=== PATIENT | female | born 1950 | race Caucasian/White ===

== ENCOUNTER → 2016-08-25 | Outpatient (CLI) | payer MEDICARE, OTHER | LOC: RAD 13:24 | DX: M25.512 Pain in left shoulder (principal) | CPT/HCPCS: 73030 ==

== ENCOUNTER → 2016-12-04 | Outpatient (CLI) | payer MEDICARE, OTHER | LOC: RAD 10:29 | DX: M54.5 Low back pain (principal) | CPT/HCPCS: 72100 ==

== ENCOUNTER 2021-05-22 14:20 | Inpatient (IN) | payer MEDICARE, OTHER ==
[~2021-05-22] VITALS: Ht 160 cm; Wt 66.2 kg
[2021-05-22 14:59] LABS: HEMOGLOBIN 11.8 gm/dl (12.3-15.3); RED BLOOD COUNT 3.79 M/UL (4.00-5.10); WHITE BLOOD COUNT 6.6 K/UL (4.5-11.0)
[2021-05-22 16:54] LABS: BUN/CREATININE RATIO 22 (0-10)
[2021-05-22] MEDS ORDERED: ROBAXIN 750 MG750 MG PO (18:14)
[2021-05-22] MEDS ORDERED: CETIRIZINE HCL10 MG PO (18:15)
[2021-05-22] MEDS ORDERED: TRICOR 145 MG145 MG PO (18:15)
[2021-05-22] MEDS ORDERED: AMITRIPTYLINE H10 MG PO (18:15)
[2021-05-22] MEDS ORDERED: GABAPENTIN400 MG PO (18:16)
[2021-05-22] MEDS ORDERED: HYDROCODON-ACE1 EAC6 PO (18:16)
[2021-05-22] MEDS ORDERED: NITROGLYCERIN0.4 MG SL (18:16)
[2021-05-22] MEDS ORDERED: PROTONIX 40 MG40 M1 PO (18:16)
[2021-05-22] MEDS ORDERED: TOPIRAMATE50 MG PO (18:17)
[2021-05-22] MEDS ORDERED: METOPROLOL TART25 MG PO (18:19)
[2021-05-22] MEDS ORDERED: CALCIUM 600 +1 EAC2 PO (18:19)
[2021-05-22] MEDS ORDERED: DULOXETINE HCL30 MG PO (18:19)
[2021-05-22] MEDS ORDERED: MELOXICAM15 MG PO (18:20)
[2021-05-22] MEDS ORDERED: RANEXA500 MG PO (18:20)
[2021-05-22] MEDS ORDERED: PROAIR HFA8.5 GM INH (18:20)
[2021-05-22] MEDS ORDERED: AMLODIPINE BES2.5 MG PO (18:21)
[2021-05-22] MEDS ORDERED: PRAVASTATIN SOD40 MG PO (18:21)
[2021-05-22] MEDS ORDERED: ISOSORBIDE MONO60 MG PO (18:21)
[2021-05-23 11:10] LABS: HEMOGLOBIN 9.9 gm/dl (12.3-15.3); WHITE BLOOD COUNT 6.1 K/UL (4.5-11.0)
[2021-05-23 11:12] LABS: RED BLOOD COUNT 3.19 M/UL (4.00-5.10)
[2021-05-24 03:48] LABS: HEMOGLOBIN 10.2 gm/dl (12.3-15.3); RED BLOOD COUNT 3.35 M/UL (4.00-5.10); WHITE BLOOD COUNT 5.3 K/UL (4.5-11.0)
[2021-05-24] MEDS ORDERED: CLOPIDOGREL75 MG PO (08:30)
== END 2021-05-24 14:30 | disposition home or self-care (01) | DRG 287 ==
LOC: ER1 14:20 → CDU 17:23 → PROG CARE 17:23
PROVIDERS: Physician Assistant; ADMIT Internal Medicine
PROC: 4A023N7 Measurement of Cardiac Sampling and Pressure, Left Heart, Percutaneous Approach (ICD-10-PCS; principal; 2021-05-23)
PROC: B2111ZZ Fluoroscopy of Multiple Coronary Arteries using Low Osmolar Contrast (ICD-10-PCS; 2021-05-23)
DX: I25.10 Atherosclerotic heart disease of native coronary artery without angina pectoris (principal); Z20.822 Contact with and (suspected) exposure to COVID-19; I10 Essential (primary) hypertension; E78.5 Hyperlipidemia, unspecified; K21.9 Gastro-esophageal reflux disease without esophagitis; N28.9 Disorder of kidney and ureter, unspecified; F32.A Depression, unspecified; I08.1 Rheumatic disorders of both mitral and tricuspid valves; F41.9 Anxiety disorder, unspecified; F17.210 Nicotine dependence, cigarettes, uncomplicated; Z90.710 Acquired absence of both cervix and uterus; Z88.0 Allergy status to penicillin; Z88.2 Allergy status to sulfonamides; Z88.8 Allergy status to other drugs, medicaments and biological substances; Z82.49 Family history of ischemic heart disease and other diseases of the circulatory system; Z90.49 Acquired absence of other specified parts of digestive tract
CPT/HCPCS: ECHO; 36415; 71045; 80048; 80053; 82550; 82553; 83540; 83550; 83690; 83874; 83880; 84484; 85025; 85652; 86140; 93005; 93306; 99152; 99285; C1769; C1887; C1894; J1644; J1650; J2250; J2405; J3010; Q9965; U0002